=== PATIENT | female | born 1975 | race Caucasian/White ===

== ENCOUNTER 2017-10-19 16:52 | Emergency (ER) | payer OTHER ==
[~2017-10-19] VITALS: Ht 152.4 cm; Wt 78.2 kg
[2017-10-19 16:53] VITALS: BP 178/83; PULSE 60; RESP 14; TEMP 98.2; O2SAT 99
[2017-10-19 17:48] LABS: AUTOMATED NEUTROPHIL # 4.6 TH/MM3 (1.8-7.7); BASOPHIL % 0.5 % (0.0-2.0); EOSINOPHIL # 0.1 TH/MM3 (0-0.4); EOSINOPHIL % 1.3 % (0.0-4.0); HEMATOCRIT 38.7 % (35.0-46.0); HEMOGLOBIN 12.8 GM/DL (11.6-15.3); LYMPHOCYTE # 2.4 TH/MM3 (1.0-4.8); MEAN CELL VOLUME 84.1 FL (80.0-100.0); MEAN CORPUSCULAR HEMOGLOBIN 27.8 PG (27.0-34.0); MEAN CORPUSCULAR HGB CONC 33.1 % (32.0-36.0); MEAN PLATELET VOLUME 8.6 FL (7.0-11.0); MONO % 7.6 % (0.0-8.0); MONOCYTE # 0.6 TH/MM3 (0-0.9); NEUT % 59.6 % (16.0-70.0); PLATELET COUNT 298 TH/MM3 (150-450); RED BLOOD COUNT 4.61 MIL/MM3 (4.00-5.30); WHITE BLOOD COUNT 7.8 TH/MM3 (4.0-11.0)
[2017-10-19 17:55] LABS: BILIRUBIN, URINE NEG (NEG); BLOOD, URINE NEG (NEG); GLUCOSE,URINE NEG (NEG); KETONE, URINE 10 mg/dL (NEG); MUCUS URINE FEW /lpf (OCC); NITRITE,URINE NEG (NEG); SQUAMOUS EPITHELIAL CELL URINE 1 /hpf (0-5); URINE COLOR YELLOW (YELLW/STRAW); URINE LEUKOCYTE ESTERASE NEG (NEG)
[2017-10-19 17:57] LABS: ALBUMIN 3.5 GM/DL (3.4-5.0); ALT (GPT) 17 U/L (10-53); AST (GOT) 17 U/L (15-37); BICARBONATE 26.9 MEQ/L (21.0-32.0); BLOOD UREA NITROGEN 8 MG/DL (7-18); CALCIUM 8.9 MG/DL (8.5-10.1); CHLORIDE 103 MEQ/L (98-107); CREATININE 0.56 MG/DL (0.50-1.00); GLOMERULAR FILTRATION RATE 118 ML/MIN (>89); GLUCOSE,RANDOM 83 MG/DL (74-106); LIPASE 115 U/L (73-393); SODIUM (NA) 138 MEQ/L (136-145)
[2017-10-19 18:00] LABS: ALKALINE PHOSPHATASE 75 U/L (45-117); TOTAL BILIRUBIN ADULT 0.4 MG/DL (0.2-1.0); TOTAL PROTEIN 8.4 GM/DL (6.4-8.2)
--- NOTE | 2017-10-19 18:33 | PD ---
HPI Chief Complaint: abdominal pain Time Seen by Provider: 18:08 Travel History International Travel<30 days: No Contact w/Intl Traveler<30days: No Traveled to known affect area: No History of Present Illness HPI 42 y/o female presents with left lower quadrant abdominal pain that is been present over the past couple of days. She states she's had 4 prior bouts with diverticulitis. She states she went to an urgent care who referred her here. She states she had her last menstrual cycle last week and has had a tubal ligation. She denies any fever, vomiting or any other concurrent complaints. She denies specific modifying factors. She states over the holiday she had corn and does not know if that exacerbated this. Quality pain is sharp. Location is left lower quadrant. She denies migration of the pain. PFSH Past Medical History Asthma: Yes Diverticulitis: Yes Influenza Vaccination: No ?: Not LMP: 10/06/17 : 10 Para: 2 Tubal Ligation: Yes Social History Alcohol Use: No Tobacco Use: No Substance Use: No Allergies-Medications (Allergen,Severity, Reaction): Coded Allergies: ciprofloxacin (Verified Allergy, Unknown, 10/19/17) iodine (Verified Allergy, Unknown, 10/19/17) Uncoded Allergies: mushrooms (Allergy, Severe, 10/19/17) pesticides (Allergy, Severe, 10/19/17) shellfish (Allergy, Severe, 10/19/17) Review of Systems Except as stated in HPI: all other systems reviewed are Neg Physical Exam Narrative GENERAL: Well-nourished, well-developed patient. SKIN: Warm and dry. HEAD: Normocephalic and atraumatic. EYES: No injection or drainage. ENT: No nasal drainage noted. NECK: Supple, trachea midline. CARDIOVASCULAR: Regular rate and rhythm RESPIRATORY: no increased effort. No accessory muscle use. GASTROINTESTINAL: Abdomen soft, ttp in llq, nondistended. EXTREMITIES: No edema. NEUROLOGICAL: Awake. Motor and sensory grossly within normal limits. Normal speech. Data Data Last Documented VS Vital Signs Date Time Temp Pulse Resp B/P (MAP) Pulse Ox O2 Delivery O2 Flow Rate FiO2 10/19/17 16:53 98.2 60 14 178/83 (114) 99 Orders Orders Complete Blood Count With Diff (10/19/17 17:00) Comprehensive Metabolic Panel (10/19/17 17:00) Lipase (10/19/17 17:00) Urinalysis - C+S If Indicated (10/19/17 17:00) Ed Urine Pregnancytest Poc (10/19/17 18:16) Ct Abd/Pel W/O Iv Contrast (10/19/17 ) Labs Laboratory Tests Test 10/19/17 17:25 10/19/17 17:27 Urine Color YELLOW Urine Turbidity CLEAR Urine pH 6.0 Urine Specific [place] 1.026 Urine Protein TRACE mg/dL Urine Glucose (UA) NEG mg/dL Urine Ketones 10 mg/dL Urine Occult Blood NEG Urine Nitrite NEG Urine Bilirubin NEG Urine Urobilinogen LESS THAN 2.0 MG/DL Urine Leukocyte Esterase NEG Urine RBC 1 /hpf Urine WBC 1 /hpf Urine Squamous Epithelial Cells 1 /hpf Urine Mucus FEW /lpf Microscopic Urinalysis Comment CULT NOT INDICATED White Blood Count 7.8 TH/MM3 Red Blood Count 4.61 MIL/MM3 Hemoglobin 12.8 GM/DL Hematocrit 38.7 % Mean Corpuscular Volume 84.1 FL Mean Corpuscular Hemoglobin 27.8 PG Mean Corpuscular Hemoglobin Concent 33.1 % Red Cell Distribution Width 15.0 % Platelet Count 298 TH/MM3 Mean Platelet Volume 8.6 FL Neutrophils (%) (Auto) 59.6 % Lymphocytes (%) (Auto) 31.0 % Monocytes (%) (Auto) 7.6 % Eosinophils (%) (Auto) 1.3 % Basophils (%) (Auto) 0.5 % Neutrophils # (Auto) 4.6 TH/MM3 Lymphocytes # (Auto) 2.4 TH/MM3 Monocytes # (Auto) 0.6 TH/MM3 Eosinophils # (Auto) 0.1 TH/MM3 Basophils # (Auto) 0.0 TH/MM3 CBC Comment DIFF FINAL Differential Comment Blood Urea Nitrogen 8 MG/DL Creatinine 0.56 MG/DL Random Glucose 83 MG/DL Total Protein 8.4 GM/DL Albumin 3.5 GM/DL Calcium Level 8.9 MG/DL Alkaline Phosphatase 75 U/L Aspartate Amino Transf (AST/SGOT) 17 U/L Alanine Aminotransferase (ALT/SGPT) 17 U/L Total Bilirubin 0.4 MG/DL Sodium Level 138 MEQ/L Potassium Level 3.6 MEQ/L Chloride Level 103 MEQ/L Carbon Dioxide Level 26.9 MEQ/L Anion Gap 8 MEQ/L Estimat Glomerular Filtration Rate 118 ML/MIN Lipase 115 U/L MDM Medical Decision Making Medical Screen Exam Complete: Yes Emergency Medical Condition: Yes Medical Record Reviewed: Yes (pmh confirmed) Differential Diagnosis diverticulitis, stone, cyst.... Narrative Course will check beta and ct in addition to protocol from triage and reeval Physician Communication Physician Communication dr jasso to follow ct and reeval Eloina Mcneil MD Oct 19, 2017 18:33
--- NOTE | 2017-10-19 19:16 | PD ---
Physical Exam Narrative General: The patient is a well-developed well-nourished female in no acute distress. Head and Neck exam: Head is normocephalic atraumatic. Cardiovascular: Regular rate and rhythm without murmurs, gallops, or rubs. Lungs: Clear to auscultation bilaterally. No wheezes, rhonchi, or rales. Abdomen: Soft, with reported tenderness on palpation along the left lower quadrant of the abdomen and suprapubic area. No other tenderness on palpation of the other quadrants of the abdomen. No guarding, rebound, or rigidity. Extremities: No clubbing, cyanosis, or edema. Neurologic Exam: Grossly nonfocal. Data Data Last Documented VS Vital Signs Date Time Temp Pulse Resp B/P (MAP) Pulse Ox O2 Delivery O2 Flow Rate FiO2 10/19/17 16:53 98.2 60 14 178/83 (114) 99 Orders Orders Complete Blood Count With Diff (10/19/17 17:00) Comprehensive Metabolic Panel (10/19/17 17:00) Lipase (10/19/17 17:00) Urinalysis - C+S If Indicated (10/19/17 17:00) Ed Urine Pregnancytest Poc (10/19/17 18:16) Ct Abd/Pel W/O Iv Contrast (10/19/17 ) Ed Discharge Order (10/19/17 19:59) Labs Laboratory Tests Test 10/19/17 17:25 10/19/17 17:27 Urine Color YELLOW Urine Turbidity CLEAR Urine pH 6.0 Urine Specific [place] 1.026 Urine Protein TRACE mg/dL Urine Glucose (UA) NEG mg/dL Urine Ketones 10 mg/dL Urine Occult Blood NEG Urine Nitrite NEG Urine Bilirubin NEG Urine Urobilinogen LESS THAN 2.0 MG/DL Urine Leukocyte Esterase NEG Urine RBC 1 /hpf Urine WBC 1 /hpf Urine Squamous Epithelial Cells 1 /hpf Urine Mucus FEW /lpf Microscopic Urinalysis Comment CULT NOT INDICATED White Blood Count 7.8 TH/MM3 Red Blood Count 4.61 MIL/MM3 Hemoglobin 12.8 GM/DL Hematocrit 38.7 % Mean Corpuscular Volume 84.1 FL Mean Corpuscular Hemoglobin 27.8 PG Mean Corpuscular Hemoglobin Concent 33.1 % Red Cell Distribution Width 15.0 % Platelet Count 298 TH/MM3 Mean Platelet Volume 8.6 FL Neutrophils (%) (Auto) 59.6 % Lymphocytes (%) (Auto) 31.0 % Monocytes (%) (Auto) 7.6 % Eosinophils (%) (Auto) 1.3 % Basophils (%) (Auto) 0.5 % Neutrophils # (Auto) 4.6 TH/MM3 Lymphocytes # (Auto) 2.4 TH/MM3 Monocytes # (Auto) 0.6 TH/MM3 Eosinophils # (Auto) 0.1 TH/MM3 Basophils # (Auto) 0.0 TH/MM3 CBC Comment DIFF FINAL Differential Comment Blood Urea Nitrogen 8 MG/DL Creatinine 0.56 MG/DL Random Glucose 83 MG/DL Total Protein 8.4 GM/DL Albumin 3.5 GM/DL Calcium Level 8.9 MG/DL Alkaline Phosphatase 75 U/L Aspartate Amino Transf (AST/SGOT) 17 U/L Alanine Aminotransferase (ALT/SGPT) 17 U/L Total Bilirubin 0.4 MG/DL Sodium Level 138 MEQ/L Potassium Level 3.6 MEQ/L Chloride Level 103 MEQ/L Carbon Dioxide Level 26.9 MEQ/L Anion Gap 8 MEQ/L Estimat Glomerular Filtration Rate 118 ML/MIN Lipase 115 U/L [facility] Medical Record Reviewed: Yes Supervised Visit with JACKY: No Interpretation(s) Last Impressions Abdomen/Pelvis CT 10/19/17 0000 Signed Impressions: Service Date/Time: September 19:09 - CONCLUSION: No acute CT findings in the abdomen or pelvis. Daniel Novoa MD Narrative Course During the course of the patients emergency department visit, the patients history, examination, and differential diagnosis were reviewed with the patient. The patient was placed on a monitoring engineer with oximetry and frequent blood pressure monitoring. The patient had IV access obtained and blood work sent for analysis. The patient's case was checked out to me by Dr. Mcneil. Please see her complete history and physical. The patient's case is checked out to me at the conclusion of her shift. The patient reportedly has a history of diverticulitis and was experiencing abdominal pain and left lower quadrant of the abdomen. The patient was sent over from a local urgent care Center for evaluation and treatment including CT scan of the abdomen and pelvis. At the conclusion of Dr. Mcneil shift, a CT scan of the abdomen and pelvis is pending result. The patients laboratory studies were reviewed and remarkable for a CBC that is within normal limits. CMP is remarkable for total protein of 8.4, lipase 115. Urinalysis shows 10 ketones otherwise unremarkable. A bedside urine test was negative. Radiology studies were reviewed and remarkable for a CT scan of the abdomen and pelvis shows no acute findings of the abdomen or pelvis. Given the patient's allergy profile, the patient will be treated with Bactrim DS and Flagyl for suspected early diverticulitis. The patient reports that her symptoms are very similar to prior episodes of diverticulitis. In spite of the CT scan showing no evidence of inflammation, the patient reports that the symptoms are similar, therefore the patient will be treated with close follow- up with her primary care physician. The patient is resting comfortably and feels better, is alert and in no distress. The patients results and examination findings were discussed with the patient. The repeat examination is unremarkable and benign. The history, exam, diagnostic testing, and current condition do not suggest any significant pathology to warrant further testing, continued ED treatment, admission, or surgical evaluation at this point. The vital signs have been stable. The patient does not have uncontrollable pain, intractable vomiting, or other significant symptoms. The patient's condition is stable and appropriate for discharge. The patient will pursue further outpatient evaluation with a primary care physician or other designated or consulting physician as indicated in the discharge instructions. The patient expressed understanding and was agreeable with this plan. Diagnosis Primary Impression: Abdominal pain Qualified Codes: R10.32 - Left lower quadrant pain Referrals: Primary Care Physician 1 day Patient Instructions: Abdominal Pain (ED), General Instructions Med/Other Pt SpecificInfo: Prescription(s) given Scripts Metronidazole (Flagyl) 500 Mg Tab 500 MG PO TID for Infection for 7 Days, TAB 0 Refills Prov: Chloe Carrington MD 10/19/17 Sulfamethoxazole-Trimethoprim (Bactrim DS) 800-160 Mg Tab 1 TAB PO BID for Infection, #14 TAB 0 Refills Prov: Chloe Carrington MD 10/19/17 Disposition: 01 DISCHARGE HOME Condition: Stable Chloe Carrington MD Oct 19, 2017 19:16
--- NOTE | 2017-10-19 19:34 | RADRPT ---
EXAM DATE/TIME: 10/19/2017 19:09 [facility] COMPARISON: No previous studies available for comparison. INDICATIONS : Left lower quadrant pain. ORAL CONTRAST: No oral contrast ingested. RADIATION DOSE: 6.71 CTDIvol (mGy) MEDICAL HISTORY : Ulcerative colitis. Diverticulitis. SURGICAL HISTORY : Tubal ligation. ENCOUNTER: Initial ACUITY: 1 week PAIN SCALE: 7/10 LOCATION: Left lower quadrant TECHNIQUE: Volumetric scanning of the abdomen and pelvis was performed. Using automated exposure control and ad justment of the mA and/or kV according to patient size, radiation dose was kept as low as reasonably achievable to obtain optimal diagnostic quality images. DICOM format image data is available electro nically for review and comparison. FINDINGS: LOWER LUNGS: The visualized lower lungs are clear. LIVER: Homogeneous density without lesion. There is no dilation of the biliary tree. No calcified gallston es. SPLEEN: Normal size without lesion. PANCREAS: Within normal limits. KIDNEYS: Normal in size and shape. There is no mass, stone, or hydronephrosis. ADRENAL GLANDS: Within normal limits. VASCULAR: There is no aortic aneurysm. BOWEL/MESENTERY: The stomach, small bowel, and colon demonstrate no acute abnormality. There is no free intraperitone al air or fluid. ABDOMINAL WALL: Within normal limits. RETROPERITONEUM: There is no lymphadenopathy. BLADDER: No wall thickening or mass. REPRODUCTIVE: Within normal limits. INGUINAL: There is no lymphadenopathy or hernia. MUSCULOSKELETAL: Within normal limits for patient age. CONCLUSION: No acute CT findings in the abdomen or pelvis. Daniel Novoa MD on October 19, 2017 at 19:30 Board Certified Radiologist. This report was verified electronically.
[2017-10-19] MEDS ORDERED: BACT800T5 PO (19:58)
[2017-10-19] MEDS ORDERED: METR-1 PO (19:58)
[2017-10-19 20:18] VITALS: BP 157/81; PULSE 77; RESP 18; O2SAT 97
== END 2017-10-19 20:19 | disposition home or self-care (01) ==
LOC: NEPE 16:52
DX: R10.32 Left lower quadrant pain (principal); J45.909 Unspecified asthma, uncomplicated; K57.92 Diverticulitis of intestine, part unspecified, without perforation or abscess without bleeding
CPT/HCPCS: 74176; 80053; 81001; 83690; 84703; 85025; 99284

== ENCOUNTER 2018-02-09 06:03 | Emergency (ER) | payer OTHER ==
[2018-02-09] MEDS: IBUPROFEN SUSP 100 MG/5 ML UDC PO (08:37)
[2018-02-09] MEDS: methylPREDNISolone SOD SUCC 125 MG/2 ML VIAL IM (08:38)
== END 2018-02-09 09:21 | disposition home or self-care (01) ==
LOC: NEPC 06:03
DX: J02.9 Acute pharyngitis, unspecified (principal); R06.02 Shortness of breath; J45.909 Unspecified asthma, uncomplicated
CPT/HCPCS: 87081; 87880; 96372; 99283-25